=== PATIENT | female | born 1955 | race Caucasian/White ===

== ENCOUNTER 2018-07-22 09:06 | Emergency (ER) | payer OTHER ==
[2018-07-22 09:26] VITALS: BP 189/94; PULSE 80; TEMP 97.9; BMI 41.1
--- NOTE | 2018-07-22 10:29 | PDOC ---
History of Present Illness - General Chief Complaint: Urinary Problem Stated Complaint: BLOOD IN URINE Time Seen by Provider: 07/22/18 10:13 History Source: Patient - History of Present Illness Timing/Duration: reports: constant Past History - Past Medical History Allergies/Adverse Reactions: Allergies Allergy/AdvReac Type Severity Reaction Status Date / Time No Known Allergies Allergy Verified 07/22/18 09:26 Home Medications: Ambulatory Orders Lisinopril [Zestril] 0 mg PO DAILY 07/22/18 Rosuvastatin Calcium [Crestor] 0 mg PO DAILY 07/22/18 Warfarin Sodium [Coumadin] 5 mg PO ASDIR 07/22/18 Asthma: Yes Cardiac Disorders: Yes (ANTI CARDIO LIPID SYNDROME) COPD: Yes HTN: Yes - Suicide/Smoking/Psychosocial Hx Smoking Status: Yes Smoking History: Former smoker Have you smoked in the past 12 months: No Number of Cigarettes Smoked Daily: 0 If you are a former smoker, when did you quit?: 20 years Information on smoking cessation initiated: No Review of Systems - Review of Systems Constitutional: No: Chills, Fever ABD/GI: No: Nausea, Vomiting : Yes: Hematuria. No: Dysuria *Physical Exam - Vital Signs Last Vital Signs Temp Pulse Resp BP Pulse Ox 97.9 F 80 18 189/94 H 99 07/22/18 09:22 07/22/18 09:22 07/22/18 09:22 07/22/18 09:22 07/22/18 09:22 - Physical Exam General Appearance: Yes: Appropriately Dressed. No: Apparent Distress HEENT: positive: Normal Voice Neck: positive: Supple Respiratory/Chest: negative: Respiratory Distress Gastrointestinal/Abdominal: positive: Soft. negative: Tender Musculoskeletal: negative: CVA Tenderness, Vertebral Tenderness Extremity: positive: Normal Inspection Integumentary: positive: Dry, Warm Neurologic: positive: Fully Oriented, Alert, Normal Mood/Affect Moderate Sedation - Procedure Monitoring Vital Signs: Procedure Monitoring Vital Signs Temperature 97.9 F 07/22/18 09:22 Pulse Rate 80 07/22/18 09:22 Respiratory Rate 18 07/22/18 09:22 Blood Pressure 189/94 H 07/22/18 09:22 O2 Sat by Pulse Oximetry (%) 99 07/22/18 09:22 ED Treatment Course - LABORATORY CBC & Chemistry Diagram: 07/22/18 11:15 07/22/18 11:15 Medical Decision Making - Medical Decision Making 07/22/18 10:29 63, h/o HTN, former, COPD, recently completed course of abx for "bronchitis" and currently on steroids for same, antiphospholipid syndrome on coumadin, renal stones, here w/ sudden onset gross hematuria since yesterday. No dysuria otherwise. Also c/o vague lower back and lower abd pain. No n/v/f/c PMD: Dr Hung Pulm: Dr Mckeon See exam Gross hematuria On coumadin, r/o UTI, possible renal stone (has hx of same remotely) Stable and well carmen w/ unremarkable exam -ua/cx -labs -?CT 07/22/18 13:02 Labs remarkable for leukocytosis to 18. Of note, patient currently on prednisone. No nitrites or leuks on urinalysis. INR found to be 4.79. Attempted to reach out to Dr. Hung for management, but was told M.D. not available for call today. Disposition was discussed with Dr. Acosta who agrees that as patient stable with no major bleeding, that plan is to have patient hold coumadin and follow-up with Dr. Hung in the a.m. No need for vit K at this time per MD. Plan was discussed with patient who feels safe enough to be discharged. Strict return precautions given. Blood pressure mildly elevated in ED, asymptomatic from BP standpoint. Did not take her BP meds today but will take as soon as she gets home per patient *DC/Admit/Observation/Transfer Diagnosis at time of Disposition: Supratherapeutic INR Hematuria Qualifiers: Hematuria type: unspecified type Qualified Code(s): R31.9 - Hematuria, unspecified - Discharge Dispostion Disposition: HOME Condition at time of disposition: Stable - Referrals Referrals: Chas Hung MD [Primary Care Provider] - - Patient Instructions Additional Instructions: The blood in your urine is most likely due to the fact that yourr INR was over the therapeutic range. INR today was 4.79 Please hold yourr Coumadin tonight and call Dr. Hung first thing in the morning for further management. As discussed in ED if you become dizzy, weak or any other new concerning symptoms, return to the ER immediately - Post Discharge Activity
[2018-07-22] MEDS ORDERED: SODIUM CHLORIDE 1,000 ML IV STA (10:31)
[2018-07-22 11:36] LABS: URINE APPEARANCE CLOUDY; URINE BILIRUBIN NEGATIVE (<2.0 mg/dL); URINE GLUCOSE (UA) NEGATIVE (NEGATIVE); URINE KETONE NEGATIVE (NEGATIVE); URINE LEUK ESTERASE NEGATIVE (NEGATIVE); URINE NITRITE NEGATIVE (NEGATIVE); URINE PROTEIN 2+ (NEGATIVE); URINE UROBILINOGEN NEGATIVE mg/dL (0.2-1.0)
[2018-07-22 11:37] LABS: BASO % 0.5 % (0-2.0); HEMATOCRIT 40.2 % (32.4-45.2); HEMOGLOBIN 13.7 GM/dL (10.7-15.3); LYMPH % 11.7 % (8-40); MCH 28.6 pg (25.7-33.7); MCHC 34.1 g/dl (32.0-36.0); MEAN PLT VOLUME 9.2 fl (7.5-11.1); MONO % 6.8 % (3.8-10.2); PLATELET COUNT 264 K/MM3 (134-434); RBC 4.79 M/mm3 (3.60-5.2); RDW 15.8 % (11.6-15.6)
[2018-07-22 11:59] LABS: PROTHROMBIN TIME (PATIENT) 57.4 SEC (9.7-13.0)
[2018-07-22 12:01] LABS: URINE COLOR AMBER
[2018-07-22 12:08] LABS: ALBUMIN 3.5 g/dl (3.4-5.0); ALK PHOS 102 U/L (45-117); ANION GAP 7 MMOL/L (8-16); BILIRUBIN,TOTAL 0.5 mg/dL (0.2-1); BLOOD UREA NITROGEN 16 mg/dL (7-18); CALCIUM 8.8 mg/dL (8.5-10.1); CHLORIDE 101 mmol/L (98-107); CO2 27 mmol/L (21-32); CREATININE 0.7 mg/dL (0.55-1.3); GLUCOSE,RANDOM 138 mg/dL (74-106); POTASSIUM 4.6 mmol/L (3.5-5.1); SGOT/AST 17 U/L (15-37); SGPT/ALT 29 U/L (13-61); SODIUM 134 mmol/L (136-145); TOT PROT 7.1 g/dl (6.4-8.2)
[2018-07-22 12:20] LABS: INR 4.79 (0.83-1.09)
== END 2018-07-22 13:36 | disposition home or self-care (01) ==
LOC: JER 09:06
PROC: 3E0337Z Introduction of Electrolytic and Water Balance Substance into Peripheral Vein, Percutaneous Approach (ICD-10-PCS; principal; 2018-07-22)
DX: R79.1 Abnormal coagulation profile (principal); D68.61 Antiphospholipid syndrome; Z79.01 Long term (current) use of anticoagulants; I10 Essential (primary) hypertension; J44.9 Chronic obstructive pulmonary disease, unspecified; J45.909 Unspecified asthma, uncomplicated; Z87.891 Personal history of nicotine dependence
CPT/HCPCS: 36415; 80053; 81003; 81015; 85025; 85610; 86850; 86870; 86900; 86901; 86902; 87086; 96360; 99283-25; J7030

== ENCOUNTER 2019-05-20 05:13 | Day surgery (SDC) | payer OTHER ==
[2019-05-15 16:34] VITALS: BMI 42.9
[2019-05-20 11:13] VITALS: TEMP 98.3
[2019-05-20 11:50] VITALS: BP 124/71; PULSE 66
--- NOTE | 2019-05-21 15:26 | PATH ---
Surgical Pathology Report Patient Name: LEEANNA OSORIO [facility]. Rec. #: [id number] /Age/Gender: 1955 (Age: 63) / F Account: [id number] Location: [facility]-ENDOSCOPY Taken: 05/20/2019 Received: 05/20/2019 Reported: 05/21/2019 Physicians: Blair Marshall M.D. Specimen(s) Received A: DESCENDING COLON POLYP B: SIGMOID POLYP C: POLYP HOT SNARE Clinical History Personal history of colon polyp, colon cancer screening Postoperative diagnosis: Diverticulosis, descending colon polyp, sigmoid polyp, rectal polyp Final Diagnosis A. COLON, DESCENDING, POLYPECTOMY: HYPERPLASTIC POLYP. B. COLON, SIGMOID, POLYPECTOMY: HYPERPLASTIC POLYP. C. COLON, RECTUM, POLYPECTOMY: HYPERPLASTIC POLYP. Electronically Signed Claudio Galeano M.D. Gross Description A. Received in formalin, labeled "descending colon polyp" is a [place], irregular portion of soft tissue measuring 0.2 cm. in greatest dimension. The specimen is submitted in toto in one cassette. B. Received in formalin, labeled "sigmoid colon polyp" is a [place], irregular portion of soft tissue measuring 0.6 cm. in greatest dimension. The specimen is submitted in toto in one cassette. C. Received in formalin, labeled "biopsy of rectum" are 3 [place], irregular portions of soft tissue ranging from 0.2-0.5 cm. in greatest dimension. The specimens are submitted in toto in one cassette. DL/05/20/2019 saudi/05/20/2019
== END 2019-05-20 11:30 | disposition home or self-care (01) ==
LOC: JASU-ENDO 05:13
PROVIDERS: ATTEND Internal Medicine Gastroenterology
PROC: 0DBN8ZX Excision of Sigmoid Colon, Via Natural or Artificial Opening Endoscopic, Diagnostic (ICD-10-PCS; 2019-05-20)
PROC: 0DBP8ZX Excision of Rectum, Via Natural or Artificial Opening Endoscopic, Diagnostic (ICD-10-PCS; 2019-05-20)
PROC: 0DBM8ZX Excision of Descending Colon, Via Natural or Artificial Opening Endoscopic, Diagnostic (ICD-10-PCS; principal; 2019-05-20 09:45)
DX: Z12.11 Encounter for screening for malignant neoplasm of colon (principal); Z86.010 Personal history of colon polyps; D12.4 Benign neoplasm of descending colon; D12.5 Benign neoplasm of sigmoid colon; K62.1 Rectal polyp; K64.8 Other hemorrhoids; K57.30 Diverticulosis of large intestine without perforation or abscess without bleeding
CPT/HCPCS: 88305-TC

== ENCOUNTER → 2023-11-15 | Day surgery (SDC) | payer OTHER | END | disposition home or self-care (01) | LOC: JRADIR 08:55 | PROVIDERS: ATTEND Internal Medicine Endocrinology, Diabetes & Metabolism | PROC: 0G9H3ZX Drainage of Right Thyroid Gland Lobe, Percutaneous Approach, Diagnostic (ICD-10-PCS; principal; 2023-11-15) | DX: E04.1 Nontoxic single thyroid nodule (principal) | CPT/HCPCS: 10005; 76942; 88173; 88305-TC ==